=== PATIENT | male | born 1975 | race Caucasian/White ===

== ENCOUNTER 2019-02-12 03:12 | Emergency (ER) | payer OTHER ==
[~2019-02-12] VITALS: Ht 177.8 cm; Wt 90.9 kg
[2019-02-12 03:17] VITALS: TEMP 98
[2019-02-12 03:53] LABS: BASO % 0.5 % (0.0-2.0); EOS # 0.1 (0.0-0.7); EOS % 1.6 % (0-4.0); GRAN # 1.8 (1.4-6.5); GRAN % 41.5 % (42.2-75.2); HEMATOCRIT 39.2 % (42.0-52.0); HEMOGLOBIN 13.7 g/dl (13.5-18.0); MEAN CELL VOLUME 87 fl (80.0-100.0); MEAN CORPUSCULAR HEMOGLOBIN 30 pg (27.0-31.0); MEAN CORPUSCULAR HGB CONC 35 g/dl (33.0-37.0); MEAN PLATELET VOLUME 8.9 fl (7.4-10.4); MONO # 0.5 (0.1-0.6); MONO % 11.2 % (1.7-9.3); PLATELET COUNT 174 K/mm3 (130-400); REDCELL DISTRIBUTION WIDTH-CV 11.8 % (11.5-14.5)
[2019-02-12] MEDS ORDERED: PRINIVIL2.5 MG PO (03:55)
[2019-02-12 04:05] LABS: ALANINE AMINOTRANSFERASE 25 U/L (21-72); ALBUMIN 4.2 gm/dL (3.5-5.0); ALKALINE PHOSPHATASE 46 U/L (50-136); ANION GAP 9 mmol/L (7-16); AST,SGOT 23 U/L (15-37); BILIRUBIN,TOTAL 0.5 mg/dL (0.0-1.0); BLOOD UREA NITROGEN 25 mg/dL (9-20); CALCIUM 9.8 mg/dL (8.4-10.2); CARBON DIOXIDE 28 mmol/L (22-30); CHLORIDE 102 mmol/L (98-107); CREATININE, serum 1.35 (0.66-1.25); GLUCOSE 115 mg/dL (74-106); MAGNESIUM 2.1 mg/dL (1.6-2.3); PHOSPHOROUS 4.1 mg/dL (2.5-4.5); SODIUM 139 mmol/L (137-145); TOTAL PROTEIN 7.3 gm/dL (6.4-8.2)
[2019-02-12 04:18] LABS: TROPONIN-I < 0.012 ng/mL (0.000-0.035)
[2019-02-12] MEDS ORDERED: NORVASC2.5 MG PO (05:33)
[2019-02-12 07:09] VITALS: BP 147/93; PULSE 60
== END 2019-02-12 07:09 | disposition home or self-care (01) ==
LOC: COL.ER 03:12
PROVIDERS: Emergency Medicine
DX: F41.9 Anxiety disorder, unspecified (principal); I10 Essential (primary) hypertension
CPT/HCPCS: J1200; J2060; J7030

== ENCOUNTER → 2019-02-19 | Outpatient (CLI) | payer OTHER ==
[~2019-02-19] MED LIST: NORVASC2.5 MG PO; PRINIVIL2.5 MG PO
== END ==
LOC: COL.VAS 10:00
DX: I10 Essential (primary) hypertension (principal); N17.9 Acute kidney failure, unspecified

== ENCOUNTER → 2019-06-11 | Outpatient (CLI) | payer OTHER | LOC: COL.RAD 07:49 | DX: R10.11 Right upper quadrant pain (principal) ==

== ENCOUNTER → 2023-01-19 | Outpatient (CLI) | payer OTHER | LOC: COL.RAD 09:20 | DX: L72.9 Follicular cyst of the skin and subcutaneous tissue, unspecified (principal) ==